=== PATIENT | male | born 2000 | race Caucasian/White ===

== ENCOUNTER 2022-11-29 18:32 | Outpatient (RCR) | payer OTHER, SELFPAY ==
[2022-11-29 18:49] LABS: Absolute Lymphocyte Count 1.26 X10^3/uL (0.83-4.51); Absolute Neutrophil Count 5.5 X10^3/uL (2.0-7.7); Basophil# 0.04 X10^3/uL; Basophil% 0.5 % (0-1); Eosinophil# 0.15 X10^3/uL; Hemoglobin 13.6 g/dL (13.0-16.5); Lymphocyte # 1.26 X10^3/ul (0.83-4.51); Lymphocyte % 16.5 % (19-41); Mean Corp Hgb Conc 33.2 g/dL (32-36); Mean Corpuscular Hgb 27.4 pg (27.0-32.0); Mean Corpuscular Volume 82.5 fL (80-94); Mean Platelet Vol. 10.2 fl (6.2-12.0); Monocyte% 9.2 % (0-10); NRBC Flagged by Analyzer 0 % (0-5); Neutrophil # 5.46 X10^3/uL (2.7-7.7); Neutrophil % 71.7 % (47-70); Platelet Count 199 K/mm3 (150-450); RBC Distribution Width CV 13.9 % (11.6-14.6); RBC Distribution Width SD 41.4 fl (35.1-43.9); Red Blood Count 4.97 M/mm3 (4.6-6.2); White Blood Count 7.6 K/mm3 (4.4-11.0)
[2022-11-29 19:21] LABS: Alanine Aminotransfer ALT/SGPT 55 U/L (16-61); CPK Total, Creatine Kinase 62 U/L (39-308); Creatinine, Serum 0.82 mg/dL (0.70-1.30); EST Glomerular Filtration Rate 124 mL/min (>60); Est Glom Filt Rate - Afr Amer 149 mL/min (>60)
== END 2022-11-29 19:00 | disposition home or self-care (01) ==
LOC: HHLAB 18:32
DX: Z79.899 Other long term (current) drug therapy (principal)
CPT/HCPCS: 82550; 82565; 84460; 85025

== ENCOUNTER 2022-12-04 18:23 | Emergency (ER) | payer OTHER, SELFPAY ==
[2022-12-04 18:25] VITALS: BP 123/87; PULSE 101; RESP 16; TEMP 37.7; O2SAT 96; BMI 22.8
--- NOTE | 2022-12-04 19:07 | EDS_ITS ---
HPI History of Present Illness Chief Complaint: Allergic Reaction Informant: patient Narrative Narrative: Patient presents secondary to intermittent fever. Patient had a left wrist injury in last spring. There was a large thorn that got stuck in his skin. He developed some swelling to the area in August but x-rays did not show anything. He had an MRI in September that showed evidence of infection. He went to surgery in November on the and they cleared the infection and placed a wound VAC. He then went back to the OR on the and they closed the wound. He has been on IV Zosyn every 8 hours and daptomycin every 24 hours at home. For the last 3 days every time the patient gives himself Zosyn he gets an upset stomach as it is infusing. About an hour later he will develop shakes, feel cold and get hot flashes. He states it takes about 3 hours for the symptoms to resolve. Home nurse was out today and noted a temperature up to 102. Blood cultures were obtained. They called the patient's primary care physician who recommended he come in to ensure nothing else was wrong. [facility] Medical History (Updated 12/04/22 @ 23:[address] Laura Zuniga MD) Infection of left wrist Home Medications daptomycin .ROUTE 12/04/22 [History Last Taken Unknown] [id number] IV 12/04/22 [History Last Taken Unknown] Allergy/AdvReac Type Severity Reaction Status Date / Time No Known Allergies Allergy Verified 12/04/22 18:24 Surgical History H/O left wrist surgery Social History Smoking Status: Never smoker ROS ROS ED Constitutional Constitutional ED: Reports fever(s) and sweats; Denies chills Eyes Eyes: Denies change in vision or discharge from eye(s) ENT ENT ED: Denies discharge from eye(s), rhinorrhea or sore throat Cardiovascular Cardiovascular: Denies chest pain or palpitations Respiratory/Chest Respiratory/Chest: Denies cough or dyspnea Gastrointestinal Gastrointestinal: Reports nausea; Denies abdominal pain or vomiting Musculoskeletal Musculoskeletal: Denies back pain or extremity pain Integumentary Denies Abrasions or rash Neurologic Neurologic: Denies headache(s) or weakness Psychiatric Psychiatric: Denies anxiety or depression Allergic/Immunologic Allergic/Immunologic ED: Denies lip swelling or urticaria EXAM Physical Exam Const Vital Signs: 12/04/22 18:25 12/04/22 22:00 12/04/22 22:59 Temperature 99.8 F H Temperature Source Oral Pulse Rate 101 H 105 H 108 H Respiratory Rate 16 16 16 Blood Pressure 123/87 H 111/81 H 109/74 Blood Pressure Mean 99 91 85 Pulse Ox 96 96 95 Oxygen Delivery Method Room Air Room Air Room Air Positive well nourished and well developed General Appearance ED: well developed HEENT Reports normocephalic and head/scalp atraumatic Eyes PERRL and EOMs intact bilaterally Neck supple Chest Wall inspection of chest normal and palpation of chest normal Resp normal respiratory effort and clear to auscultation bilaterally Cardio regular rate, regular rhythm and no murmurs GI normal to inspection, nondistended, normoactive bowel sounds Palpation: soft Extremity Extremity Narrative: Healing surgical wound on the left wrist. No sign of focal infection. Neuro oriented x3 and no sensory deficits noted Sensorium / Orientation: alert Psych mental status grossly normal Skin Skin Narrative: Petechial rash noted to the forearms bilaterally. MDM MDM MDM Narrative Medical decision making narrative: We did verify with lab that they do have the patient's blood cultures that were drawn earlier today. Labwork obtained to evaluate for leukocytosis, anemia, and electrolyte derangement. Chest x-ray obtained to evaluate for acute lung pathology, cardiac size, or mediastinal abnormality. History & Record Review Discussion w/independent historian: Patient and Family Additional record(s) reviewed:: Prior labs Lab Data Attestation: I reviewed the patient's lab results. Labs: Laboratory Results - last 24 hr 12/04/22 19:25 WBC 2.5 L RBC 4.68 Hgb 12.8 L Hct 36.7 L MCV 78.4 L MCH 27.4 MCHC 34.9 RDW Std Deviation 39.8 RDW Coeff of Stacey 14.1 Plt Count 58 L MPV 10.5 Immature Gran % (Auto) 0.800 Neut % (Auto) 55.5 Lymph % (Auto) 35.8 Lamb % (Auto) 7.5 Eos % (Auto) 0.0 Baso % (Auto) 0.4 Absolute Neuts (auto) 1.4 L Absolute Lymphs (auto) 0.91 Nucleated RBC % 0 Differential Comment SCANNED Sodium 134 L Potassium 3.2 L Chloride 103 Carbon Dioxide 25.0 Anion Gap 6 BUN 11 Creatinine 0.94 Estim Creat Clear Calc 122.26 Est GFR (MDRD) Af Amer 128 Est GFR (MDRD) Non-Af 106 BUN/Creatinine Ratio 11.7 Glucose 110 H Lactic Acid 0.6 Calcium 8.6 Total Bilirubin 0.60 Direct Bilirubin 0.21 AST 214 H ALT 89 H Alkaline Phosphatase 61 Total Protein 7.5 Albumin 3.8 Globulin 3.7 Radiography Chest X-Ray - ED: 1 View, Read by ED Physician, No Infiltrates and - (PICC line in good position) Diagnostic Testing: Clinical Impression(s) from Imaging Studies Chest X-Ray 12/04/22 19:35 IMPRESSION: No radiographic evidence of acute cardiopulmonary disease. PICC line. Electronically Signed: Gerardo Romero MD at 19:52 EDT , Treatment and Re-Evaluation :: CBC was a white count of 2.5. Hemoglobin is 12.8 and hematocrit 36.7. Platelet count is down to 58,000. On 29 November his platelet count was 199,000. Chemistry studies reveal sodium 134 potassium 3.2. He is given oral potassium. LFTs significant for an AST of 214 and an ALT of 89. Portable chest x-ray per my interpretation reveals PICC line to be in good position. No evidence of infiltrate. With patient having a low white count and fever I did do a COVID and influenza swab and it is negative. With patient having significant drop in his platelet count this week as well as petechial rash, I do have concern about possible HIT, antibiotic reaction, ITP. I do feel patient needs to be admitted for further evaluation and treatment. Given the patient's surgery was at [facility] I do feel he would best served at [facility] where his surgeon will be available to consult as needed. Patient has been accepted by the hospitalist. Discharge Plan Triage Chief Complaint: Allergic Reaction ED Provider: Laura Zuniga Dx/Rx/DC Orders Clinical Impression: Fever, Thrombocytopenia Prescriptions: No Action [id number] [Zosyn in dextrose (iso-osm)] IV daptomycin .ROUTE Primary Care Provider: CURT SANTOS Referrals: CURT SANTOS [Other] Disposition Disposition: Acute Care Hospital Discharge Location: [facility]
--- NOTE | 2022-12-04 19:35 | RAD_ITS ---
INDICATION: PICC line/ fever EXAMINATION/TECHNIQUE: X-RAY - XR Chest 1 View COMPARISON: None. FINDINGS: LINES/DEVICES: Right-sided PICC line. Tip projects at cavoatrial junction. LUNGS: No consolidation, edema or effusion. No pneumothorax. MEDIASTINUM AND CARDIOVASCULAR STRUCTURES: Cardiac silhouette not enlarged. Central airways and mediastinal contour are unremarkable. BONES AND SOFT TISSUES: Unremarkable. RAD/Chest 1 View (Portable) IMPRESSION: No radiographic evidence of acute cardiopulmonary disease. PICC line. Electronically Signed: Gerardo Romero MD at 19:52 EDT ,
[2022-12-04 19:38] LABS: Absolute Lymphocyte Count 0.91 X10^3/uL (0.83-4.51); Absolute Neutrophil Count 1.4 X10^3/uL (2.0-7.7); Basophil# 0.01 X10^3/uL; Basophil% 0.4 % (0-1); Hematocrit 36.7 % (40-54); Hemoglobin 12.8 g/dL (13.0-16.5); Lymphocyte # 0.91 X10^3/ul (0.83-4.51); Lymphocyte % 35.8 % (19-41); Mean Corp Hgb Conc 34.9 g/dL (32-36); Mean Corpuscular Hgb 27.4 pg (27.0-32.0); Mean Corpuscular Volume 78.4 fL (80-94); Mean Platelet Vol. 10.5 fl (6.2-12.0); Monocyte# 0.19 X10^3/uL; Monocyte% 7.5 % (0-10); NRBC Flagged by Analyzer 0 % (0-5); Neutrophil # 1.41 X10^3/uL (2.7-7.7); Neutrophil % 55.5 % (47-70); POSITIVE COUNT YES; POSITIVE MORPHOLOGY YES; Platelet Count 58 K/mm3 (150-450); RBC Distribution Width CV 14.1 % (11.6-14.6); RBC Distribution Width SD 39.8 fl (35.1-43.9); Red Blood Count 4.68 M/mm3 (4.6-6.2); White Blood Count 2.5 K/mm3 (4.4-11.0)
[2022-12-04 19:43] LABS: Differential Indicated SCAN CRITERIA MET
[2022-12-04 19:53] LABS: AST(SGOT) 214 U/L (15-37); Alanine Aminotransfer ALT/SGPT 89 U/L (16-61); Albumin, Serum 3.8 g/dL (3.2-5.0); Alkaline Phosphatase 61 U/L (45-117); Anion Gap 6 (5-15); BUN 11 mg/dL (7-18); BUN/Creat Ratio 11.7 RATIO (10-20); Bilirubin, Direct 0.21 mg/dL (0.00-0.30); Calcium,Total 8.6 mg/dL (8.5-10.1); Chloride 103 mmol/L (98-107); Creatinine, Serum 0.94 mg/dL (0.70-1.30); EST Glomerular Filtration Rate 106 mL/min (>60); Est Glom Filt Rate - Afr Amer 128 mL/min (>60); Estimated Creatinine Clearance 122.26 ml/min; Globulin 3.7 g/dL (2.2-4.2); Glucose 110 mg/dL (74-106); Potassium 3.2 mmol/L (3.5-5.1); Protein, Total 7.5 g/dL (6.4-8.2); Sodium Level 134 mmol/L (136-145)
[2022-12-04 20:16] LABS: Differential Comment SCANNED
[2022-12-04 20:30] LABS: Lactic Acid 0.6 mmol/L (0.4-1.9)
[2022-12-04 22:00] VITALS: BP 111/81; PULSE 105; RESP 16; O2SAT 96
[2022-12-04] MEDS: Potassium Chloride Oral Tablet 20 MEQ 40 MEQ PO (22:33)
[2022-12-04 22:59] VITALS: BP 109/74; PULSE 108; RESP 16; O2SAT 95
[2022-12-05 00:09] VITALS: BP 107/69; PULSE 94; RESP 15; TEMP 37.7; O2SAT 97
[2022-12-05 00:25] VITALS: BP 107/69; PULSE 94; RESP 15; TEMP 37.7; O2SAT 97
== END 2022-12-05 00:47 | disposition short-term general hospital (02) ==
PROVIDERS: Emergency Provider Emergency Medicine; Visit Provider Emergency Medicine
DX: R50.9 Fever, unspecified (principal); D69.6 Thrombocytopenia, unspecified
CPT/HCPCS: 36592; 71045; 80048; 80076; 83605; 85025; 87040; 87428; 99283; A4216

== ENCOUNTER 2022-12-13 11:59 | Outpatient (RCR) | payer OTHER, SELFPAY ==
[2022-12-13 15:10] LABS: Absolute Lymphocyte Count 1.22 X10^3/uL (0.83-4.51); Basophil# 0.03 X10^3/uL; Basophil% 0.5 % (0-1); Eosinophil# 0.61 X10^3/uL; Hematocrit 39.5 % (40-54); Hemoglobin 12.7 g/dL (13.0-16.5); Lymphocyte # 1.22 X10^3/ul (0.83-4.51); Lymphocyte % 22.1 % (19-41); Mean Corp Hgb Conc 32.2 g/dL (32-36); Mean Corpuscular Hgb 26.6 pg (27.0-32.0); Mean Corpuscular Volume 82.8 fL (80-94); Mean Platelet Vol. 10.5 fl (6.2-12.0); Monocyte# 0.57 X10^3/uL; Monocyte% 10.3 % (0-10); NRBC Flagged by Analyzer 0 % (0-5); Neutrophil # 3.01 X10^3/uL (2.7-7.7); Neutrophil % 54.5 % (47-70); Platelet Count 284 K/mm3 (150-450); RBC Distribution Width CV 15.1 % (11.6-14.6); RBC Distribution Width SD 45.3 fl (35.1-43.9); Red Blood Count 4.77 M/mm3 (4.6-6.2); White Blood Count 5.5 K/mm3 (4.4-11.0)
[2022-12-13 15:25] LABS: Alanine Aminotransfer ALT/SGPT 319 U/L (16-61); CPK Total, Creatine Kinase 55 U/L (39-308); Creatinine, Serum 0.75 mg/dL (0.70-1.30); EST Glomerular Filtration Rate 138 mL/min (>60); Est Glom Filt Rate - Afr Amer 167 mL/min (>60)
[2022-12-16 12:53] LABS: Absolute Lymphocyte Count 1.45 X10^3/uL (0.83-4.51); Absolute Neutrophil Count 3.5 X10^3/uL (2.0-7.7); Basophil# 0.08 X10^3/uL; Basophil% 1.3 % (0-1); Eosinophil# 0.36 X10^3/uL; Hematocrit 42.5 % (40-54); Hemoglobin 13.7 g/dL (13.0-16.5); Lymphocyte # 1.45 X10^3/ul (0.83-4.51); Lymphocyte % 24.2 % (19-41); Mean Corp Hgb Conc 32.2 g/dL (32-36); Mean Corpuscular Hgb 26.9 pg (27.0-32.0); Mean Corpuscular Volume 83.5 fL (80-94); Mean Platelet Vol. 10.8 fl (6.2-12.0); Monocyte# 0.63 X10^3/uL; Monocyte% 10.5 % (0-10); NRBC Flagged by Analyzer 0 % (0-5); Neutrophil # 3.45 X10^3/uL (2.7-7.7); Neutrophil % 57.5 % (47-70); Platelet Count 331 K/mm3 (150-450); RBC Distribution Width CV 15.4 % (11.6-14.6); RBC Distribution Width SD 46.5 fl (35.1-43.9); Red Blood Count 5.09 M/mm3 (4.6-6.2)
[2022-12-16 12:59] LABS: Alanine Aminotransfer ALT/SGPT 259 U/L (16-61)
== END 2022-12-13 18:00 | disposition home or self-care (01) ==
LOC: HHLAB 11:59
PROVIDERS: Visit Provider Physician Assistant
DX: M00.9 Pyogenic arthritis, unspecified (principal)
CPT/HCPCS: 82550; 82565; 84460; 85025